=== PATIENT | female | born 1985 | race Two or more races ===

== ENCOUNTER 2017-12-27 19:27 | Emergency (ER) | payer OTHER ==
[~2017-12-27] VITALS: Ht 154.9 cm; Wt 72.6 kg
[2017-12-27 19:21] VITALS: BP 101/63
[2017-12-27] MEDS ORDERED: Acetaminophen 500mg (ES) tab ORAL ONE (19:45)
[2017-12-27] MEDS ORDERED: Bacitracin Oint UD TOPIC ONE (19:45)
[2017-12-27] MEDS ORDERED: Tetanus/Diptheria/Pertussis Vaccine 0.5ml Syr IM ONE (19:45)
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
[2017-12-27] MEDS ORDERED: TYLENOL EXTRA500 MG ORAL (20:13)
[2017-12-27 20:41] VITALS: BP 101/63
--- NOTE | 2017-12-28 11:28 | Diagnostic Imaging Report ---
Indication: Left hand pain, fourth digit laceration and pain Technique: 3 views left hand Comparison: none Findings: No acute fractures. No dislocations. The joint spaces are preserved. No radiopaque foreign body. No bony disruption. No significant soft tissue gas Impression: Negative
== END 2017-12-27 20:30 | disposition home or self-care (01) ==
LOC: EDBD 19:27 → EMR 20:30
DX: S63.619A Unspecified sprain of unspecified finger, initial encounter (principal); Z23 Encounter for immunization; S60.415A Abrasion of left ring finger, initial encounter; Y35.811A Legal intervention involving manhandling, law enforcement official injured, initial encounter
CPT/HCPCS: 29130; 90471; 90715; 99283